=== PATIENT | male | born 1930 | race Asian ===

== ENCOUNTER 2017-01-15 12:50 | Emergency (ER) | payer MEDICARE, MEDICAID ==
--- NOTE | 2017-01-15 13:15 | RAD ---
Indication: Neurologic symptoms. Single frontal view of the chest performed at 1303 hours was reviewed. Comparison is made with previous exam dated May 11, 2016. No mediastinal shift is noted. Cardiomegaly is noted. Lung costa are clear. IMPRESSION: NO ACTIVE CARDIOPULMONARY DISEASE IS NOTED.
[2017-01-15 13:18] LABS: Hematocrit 47 % (42-52); Hemoglobin 15.8 g/dl (14.0-18.0); Mean Corpuscular HGB Conc 34 g/dl (31-36); Mean Corpuscular Hemoglobin 32 pg (27-31); Mean Corpuscular Volume 95 fL (80-94); Mean Platelet Volume 8 um3 (7.4-10.4); Red Blood Count 4.94 10^6/ul (4.0-5.4); Red Cell Distribution Width 13 % (10.5-15); White Blood Count 9.8 10^3/ul (3.5-10.8)
--- NOTE | 2017-01-15 13:24 | RAD ---
Indication: Code Vogel. Neurological changes. Comparison: May 11, 2016 Technique: Noncontrast CT vertex of skull through foramen magnum. Report: Moderately severe prominence of the cerebral sulci. Decreased density in the periventricular and subcortical white matter while non-specific is most likely due to chronic microangiopathy. Negative for chávez matter white matter obscuration, intra or extra-axial hemorrhage, or mass effect. Calcification of the basal ganglia and choroid plexus noted. Unremarkable orbital contents. Atherosclerotic calcification at the central intracranial arteries. No suspicious finding of the calvarium or skull base. Retained secretions and gas at the bilateral sphenoid sinuses and near complete opacification of the ethmoid sinuses. Retained secretions with fluid level and gas bubbles at the RIGHT maxillary sinus. Clear mastoid air spaces. Negative for scalp hematoma. IMPRESSION: 1. Negative for intracranial hemorrhage. 2. Negative for mass effect. 3. Atrophy and stigmata of chronic small vessel ischemic disease and large vessel atherosclerotic disease. 4. Paranasal sinus disease similar to the prior exam. Results discussed with Dr. Belcher 01/15/2017 1:21 PM EDT
[2017-01-15 13:34] LABS: Calcium 9.4 mg/dL (8.6-10.3); EGFR African American 90.9 (>60); EGFR Non-African American 70.7 (>60); Globulin 2.9 g/dL (2-4); HDL Cholesterol 43.5 mg/dL; Potassium 3.8 mmol/L (3.5-5.0); Total Bilirubin 0.7 mg/dL (0.2-1.0); Total Protein 6.9 g/dL (6.4-8.9)
[2017-01-15 13:36] LABS: Troponin I 0.02 ng/mL (<0.04)
[2017-01-15] MEDS ORDERED: Iodixanol* (CONTRAST) 320 MG/ML 100 ML SDV IV ONE (13:36)
[2017-01-15] MEDS ORDERED: Alteplase* 100 MG VIAL ONE (13:59)
[2017-01-15 14:02] LABS: Urine Bacteria Absent (Absent); Urine Bilirubin Negative (Negative); Urine Glucose 3+(>=500 mg/dL) (Negative); Urine Nitrite Negative (Negative)
--- NOTE | 2017-01-15 14:25 | RAD ---
HISTORY: Left-sided weakness COMPARISONS: Head CT dated January 15, 2017 TECHNIQUE: Multiple contiguous axial CT scans were obtained of the head and neck After the administration of nonionic intravenous contrast timed to the systemic arterial phase of contrast enhancement. Coronal and sagittal multiplanar reformations are submitted for review. Multiple 3-D maximum intensity projection reconstructions are also submitted for review. FINDINGS: CTA NECK: AORTIC ARCH: There is a normal three-vessel branching pattern of the aortic arch. There is no ostial or proximal stenosis of the cephalic great vessels. RIGHT VERTEBRAL ARTERY: The right vertebral artery is patent along its course, without stenosis. LEFT VERTEBRAL ARTERY: The left vertebral artery is patent along its course, without stenosis. DOMINANCE: The left vertebral artery is dominant. RIGHT COMMON CAROTID ARTERY: The right common carotid artery is patent. The right carotid bifurcation occurs at C5 RIGHT INTERNAL CAROTID ARTERY: There is no right internal carotid artery stenosis by NASCET criteria. RIGHT EXTERNAL CAROTID ARTERY: The right external carotid artery is unremarkable. LEFT COMMON CAROTID ARTERY: The left common carotid artery is patent. 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 This extends superiorly to the level of the ICA clinoid segment, where there is reconstitution of flow. LEFT EXTERNAL CAROTID ARTERY: The left external carotid artery is unremarkable. VENOUS CIRCULATION: The venous system is unremarkable. SALIVARY GLANDS: The parotid glands, submandibular glands, sublingual glands are normal. NASAL CAVITY/NASOPHARYNX: The nasal cavity and nasopharynx are normal. ORAL CAVITY/OROPHARYNX: The oral cavity and oropharynx are unremarkable. LARYNGEAL APPARATUS/HYPOPHARYNX: The laryngeal apparatus and hypopharynx are normal. UPPER AIRWAY/UPPER ESOPHAGUS: The visualized upper airway and esophagus are normal. LUNG APICES: The lung apices are clear. THYROID GLAND: The thyroid gland is normal. LYMPH NODES: There is no lymphadenopathy by size criteria. BONES AND SOFT TISSUES: Degenerative changes are noted of the spine. There is a 2 cm sebaceous cyst of the right posterior neck. CTA HEAD: INTRACRANIAL CIRCULATION: As noted above, there is occlusion of the left internal carotid artery with reconstitution at the ICA terminus. Flow is noted within the supraclinoid left internal carotid artery, anterior cerebral artery, and the proximal M1 segment of the left middle cerebral artery. The mid and distal M1 segments are occluded. There is also occlusion of the proximal M2 segments. There is partial reconstitution of the M3 segments of the superior division. The anterior communicating artery complex is clear. Bilateral posterior communicating arteries are identified. VENOUS CIRCULATION: The venous system is unremarkable. PERFUSION: There is associated hypoperfusion of the left MCA territory compared to the right HEMORRHAGE/INFARCT: There is loss of chávez-white differentiation along the insula suggestive of early nonhemorrhagic infarct MASSES/SHIFT: There is no mass or shift. EXTRA-AXIAL SPACES: There are no extra-axial fluid collections. SULCI AND VENTRICLES: There is diffuse and proportional enlargement of the sulci and ventricles. CEREBRUM: There are no focal parenchymal abnormalities. BRAINSTEM: As noted above, there is loss of graft pointed differentiation along the insula CEREBELLUM: There are no focal parenchymal abnormalities. PARANASAL SINUSES: There is opacification of the ethmoid air cells. There are-fluid levels within the right maxillary sinus and sphenoid sinus ORBITS: The orbits are unremarkable. BONES AND SOFT TISSUE: No bone or soft tissue abnormalities are noted. OTHER: There is no abnormal enhancement. IMPRESSION: 1. 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 2. THERE IS ALSO THROMBOSIS OF THE LEFT MIDDLE CEREBRAL ARTERY M1 SEGMENTS AND M2 SEGMENTS WITH ASSOCIATED HYPOPERFUSION OF THE LEFT MCA TERRITORY. 3. THERE IS LOSS OF CHÁVEZ-WHITE DIFFERENTIATION ALONG THE INSULA SUGGESTIVE OF EARLY NONHEMORRHAGIC INFARCT. 4. PRELIMINARY FINDINGS WERE DISCUSSED WITH DR. KEANE IN THE EMERGENCY DEPARTMENT AT APPROXIMATELY 2:16 PM ON JANUARY 15, 2017 CPT II Codes: 3100F
--- NOTE | 2017-01-15 15:14 | ED ---
Roge Fischer Rebecca, scribed for Nicho Belcher MD on 01/15/17 at 1314 . Neurological HPI - HPI Summary HPI Summary: Patient is an 86 y/o M BIBA who presents to ED with left sided gaze, R-sided weakness and nonverbal disposition. He was last seen normal at 1000 today while brushing his teeth, per EMS. EMS report he is typically up and walking. They note that his first language is Turkish. Is on Warfarin and lives at a assisted. Level 5 caveat due to AMS. - History of Current Complaint Stated Complaint: CODE RHOADES Hx Obtained From: EMS Hx From Patient Unobtainable Due To: Altered Mental Status Onset/Duration: Started hours ago - Last seennormal at 1000, Still Present Associated Signs and Symptoms: Positive: Visual Changes - L-sided gaze, Weakness - R-sided, AMS - Nonverbal - Additional Pertinent History Primary Care Physician: RASHEL - Allergy/Home Medications Allergies/Adverse Reactions: Allergies Allergy/AdvReac Type Severity Reaction Status Date / Time Doxycycline Allergy Difficulty Verified 05/11/16 16:35 Breathing Naproxen Allergy Difficulty Verified 05/11/16 16:35 Breathing Home Medications: Home Medications Acetaminophen [Acetaminophen Extra Stren] 500 mg PO Q8HR PRN 01/15/17 [History Confirmed 01/15/17] Albuterol/Ipratropium NEB.RIA* [Duoneb (Albuterol 2.5 MG/Ipratropium 0.5 MG)] 1 neb INH Q6H PRN 01/15/17 [History Confirmed 01/15/17] Allopurinol TAB* [Zyloprim 100 MG TAB*] 100 mg PO DAILY 01/15/17 [History Confirmed 01/15/17] Furosemide TAB* [Lasix TAB*] 40 mg PO QAM 01/15/17 [History Confirmed 01/15/17] Polyethylene Glycol-Propylene [Systane Ultra 0.4-0.3 %] 1 drop BOTH EYES QID PRN 01/15/17 [History Confirmed 01/15/17] Senna/Docusate (NF) [Sennokot-S] 2 tab PO DAILY 01/15/17 [History Confirmed ] PMH/Surg Hx/FS Hx/Imm Hx Endocrine/Hematology History: Reports: Hx Anticoagulant Therapy - coumadin, Hx Diabetes Denies: Hx Thyroid Disease Cardiovascular History: Reports: Hx Hypertension, Hx Myocardial Infarction Respiratory History: Reports: Hx Asthma, Hx Chronic Obstructive Pulmonary Disease (COPD) GI History: Denies: Hx Ulcer - Surgical History Surgery Procedure, Year, and Place: STENT DUE NTO HEART ATTACK 2010 - Immunization History Date of Tetanus Vaccine: none Date of Influenza Vaccine: 2013 Infectious Disease History: Denies: Hx Hepatitis, Hx Human Immunodeficiency Virus (HIV), Traveled Outside the [place] in Last 30 Days - Family History Known Family History: Positive: Hypertension, Diabetes - Social History Lives: At [facility] Alcohol Use: None Substance Use Type: Reports: None Hx Tobacco Use: No Smoking Status (MU): Former Smoker Review of Systems - ROS Summary Review of Systems Summary: Level 5 caveat due to AMS Positive: Other - Left gaze Neurological: Other - Nonverbal Positive: Weakness - R-sided weakness All Other Systems Reviewed And Are Negative: No Physical Exam - Summary Physical Exam Summary: VITAL SIGNS: Reviewed. GENERAL: ~Patient is an elderly male who is alert, but not responding. HEAD AND FACE: No signs of trauma. ~No ecchymosis, hematomas or skull depressions. No sinus tenderness. EYES: PERRLA, No injected conjunctiva, no nystagmus. No photophobia. He has a gaze to the L side. EARS: Ear canals and tympanic membranes are within normal limits. CHEST: Symmetric, no tenderness at palpation LUNGS: Clear to auscultation bilaterally. No wheezing or crackles. CVS: IRR, S1 and S2 present, no murmurs or gallops appreciated. EXTREMITIES: FROM in all major joints, no edema, no cyanosis or clubbing. NEURO: Alert, but not responding. Has R-sided weakness. SKIN: Dry and warm Triage Information Reviewed: Yes Vital Signs On Initial Exam: Initial Vitals Pulse Pulse Ox 74 97 01/15/17 13:17 01/15/17 13:17 Vital Signs Reviewed: Yes Completion Of Physical Exam Limited Due To: Level 5 Diagnostics - Vital Signs Vital Signs Temp Pulse Resp BP Pulse Ox 01/15/17 14:57 97.7 F 01/15/17 13:39 99 01/15/17 13:30 95.9 F 74 28 144/70 98 01/15/17 13:20 98.3 F 66 15 134/74 99 06/16/17 13:19 64 25 134/74 98 01/15/17 13:18 98.3 F 76 15 99 01/15/17 13:17 74 97 - Laboratory Lab Results: Lab Results 01/15/17 01/15/17 01/15/17 Range/Units 13:10 13:10 13:10 WBC 9.8 (3.5-10.8) 10^3/ul RBC 4.94 (4.0-5.4) 10^6/ul Hgb 15.8 (14.0-18.0) g/dl Hct 47 (42-52) % MCV 95 H (80-94) fL MCH 32 H (27-31) pg MCHC 34 (31-36) g/dl RDW 13 (10.5-15) % Plt Count 236 (150-450) 10^3/ul MPV 8 (7.4-10.4) um3 Neut % (Auto) 63.0 (38-83) % Lymph % (Auto) 20.5 L (25-47) % Reeves % (Auto) 9.5 H (1-9) % Eos % (Auto) 5.9 (0-6) % Baso % (Auto) 1.1 (0-2) % Absolute Neuts (auto) 6.1 (1.5-7.7) 10^3/ul Absolute Lymphs (auto) 2.0 (1.0-4.8) 10^3/ul Absolute Monos (auto) 0.9 H (0-0.8) 10^3/ul Absolute Eos (auto) 0.6 (0-0.6) 10^3/ul Absolute Basos (auto) 0.1 (0-0.2) 10^3/ul Absolute Nucleated RBC 0 10^3/ul Nucleated RBC % 0 INR (Anticoag Therapy) 0.88 L (0.89-1.11) APTT 30.8 (26.0-36.3) seconds Sodium 137 (133-145) mmol/L Potassium 3.8 (3.5-5.0) mmol/L Chloride 101 (101-111) mmol/L Carbon Dioxide 29 (22-32) mmol/L Anion Gap 7 (2-11) mmol/L BUN 18 (6-24) mg/dL Creatinine 1.00 (0.67-1.17) mg/dL Est GFR ( Amer) 90.9 (>60) Est GFR (Non-Af Amer) 70.7 (>60) BUN/Creatinine Ratio 18.0 (8-20) Glucose 168 H (70-100) mg/dL Lactic Acid (0.5-2.0) mmol/L Calcium 9.4 (8.6-10.3) mg/dL Total Bilirubin 0.70 (0.2-1.0) mg/dL AST 14 (13-39) U/L ALT 10 (7-52) U/L Alkaline Phosphatase 76 (34-104) U/L Troponin I 0.02 (<0.04) ng/mL Total Protein 6.9 (6.4-8.9) g/dL Albumin 4.0 (3.2-5.2) g/dL Globulin 2.9 (2-4) g/dL Albumin/Globulin Ratio 1.4 (1-3) Triglycerides 234 mg/dL Cholesterol 180 mg/dL LDL Cholesterol 90 mg/dL HDL Cholesterol 43.5 mg/dL Urine Color Urine Appearance Urine pH (5-9) Ur Specific Lewis (1.010-1.030) Urine Protein (Negative) Urine Ketones (Negative) Urine Blood (Negative) Urine Nitrate (Negative) Urine Bilirubin (Negative) Urine Urobilinogen (Negative) Ur Leukocyte Esterase (Negative) Urine WBC (Auto) (Absent) Urine RBC (Auto) (Absent) Urine Bacteria (Absent) Urine Glucose (Negative) Urine Ascorbic Acid (Negative) Blood Type Antibody Screen 01/15/17 01/15/17 01/15/17 Range/Units 13:10 13:10 13:35 WBC (3.5-10.8) 10^3/ul RBC (4.0-5.4) 10^6/ul Hgb (14.0-18.0) g/dl Hct (42-52) % MCV (80-94) fL MCH (27-31) pg MCHC (31-36) g/dl RDW (10.5-15) % Plt Count (150-450) 10^3/ul MPV (7.4-10.4) um3 Neut % (Auto) (38-83) % Lymph % (Auto) (25-47) % Reeves % (Auto) (1-9) % Eos % (Auto) (0-6) % Baso % (Auto) (0-2) % Absolute Neuts (auto) (1.5-7.7) 10^3/ul Absolute Lymphs (auto) (1.0-4.8) 10^3/ul Absolute Monos (auto) (0-0.8) 10^3/ul Absolute Eos (auto) (0-0.6) 10^3/ul Absolute Basos (auto) (0-0.2) 10^3/ul Absolute Nucleated RBC 10^3/ul Nucleated RBC % INR (Anticoag Therapy) (0.89-1.11) APTT (26.0-36.3) seconds Sodium (133-145) mmol/L Potassium (3.5-5.0) mmol/L Chloride (101-111) mmol/L Carbon Dioxide (22-32) mmol/L Anion Gap (2-11) mmol/L BUN (6-24) mg/dL Creatinine (0.67-1.17) mg/dL Est GFR ( Amer) (>60) Est GFR (Non-Af Amer) (>60) BUN/Creatinine Ratio (8-20) Glucose (70-100) mg/dL Lactic Acid 1.6 (0.5-2.0) mmol/L Calcium (8.6-10.3) mg/dL Total Bilirubin (0.2-1.0) mg/dL AST (13-39) U/L ALT (7-52) U/L Alkaline Phosphatase (34-104) U/L Troponin I (<0.04) ng/mL Total Protein (6.4-8.9) g/dL Albumin (3.2-5.2) g/dL Globulin (2-4) g/dL Albumin/Globulin Ratio (1-3) Triglycerides mg/dL Cholesterol mg/dL LDL Cholesterol mg/dL HDL Cholesterol mg/dL Urine Color Yellow Urine Appearance Clear Urine pH 6.0 (5-9) Ur Specific Lewis 1.020 (1.010-1.030) Urine Protein Negative (Negative) Urine Ketones Negative (Negative) Urine Blood 1+ H (Negative) Urine Nitrate Negative (Negative) Urine Bilirubin Negative (Negative) Urine Urobilinogen Negative (Negative) Ur Leukocyte Esterase Negative (Negative) Urine WBC (Auto) Absent (Absent) Urine RBC (Auto) 3+(>10/hpf) H (Absent) Urine Bacteria Absent (Absent) Urine Glucose 3+(>=500 mg/dl) H (Negative) Urine Ascorbic Acid * H (Negative) Blood Type B Positive Antibody Screen Negative Result Diagrams: 01/15/17 13:10 01/15/17 13:10 Lab Statement: Any lab studies that have been ordered have been reviewed, and results considered in the medical decision making process. - Radiology CXR Xray Interpretation: No Acute Changes - NO ACTIVE CARDIOPULMONARY DISEASE IS NOTED. Radiology Interpretation Completed By: Radiologist - CT Brain CT CT Interpretation: No Acute Changes - 1. Negative for intracranial hemorrhage. 2. Negative for mass effect. 3. Atrophy and stigmata of chronic small vessel ischemic disease and large vessel atherosclerotic disease. 4. Paranasal sinus disease similar to the prior exam. Results discussed with Dr. Belcher 01/15/2017 1 :[address] Interpretation Completed By: Radiologist Head/neck CTA CT Interpretation: Positive (See Comments) - 1. 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 2. THERE IS ALSO THROMBOSIS OF THE LEFT MIDDLE CEREBRAL ARTERY M1 SEGMENTS AND M2 SEGMENTS WITH ASSOCIATED HYPOPERFUSION OF THE LEFT MCA TERRITORY. 3. THERE IS LOSS OF RHOADES-WHITE DIFFERENTIATION ALONG THE INSULA SUGGESTIVE OF EARLY NONHEMORRHAGIC INFARCT. 4. PRELIMINARY FINDINGS WERE DISCUSSED WITH DR. BELCHER IN THE EMERGENCY DEPARTMENT AT APPROXIMATELY 2:16 PM ON JANUARY 15, 2017 CT Interpretation Completed By: Radiologist - EKG 1309 Cardiac Rate: NL - 77 bpm EKG Rhythm: Atrial Fibrillation NIH Scale - NIH Scale Level of Consciousness: Alert/Keenly Responsive - Is nonverbal and he does not respond to any stimuli Ask Patient the Month and His/Her Age: Neither Correct/Aphasic Ask Pt to Open/Close Eyes and Electrical Instrument Technician/Release Non-Paretic Hand: Neither Correctly Best Gaze (Only Horizontal Eye Movement): Forced Deviation Visual Field Testing: Bilateral Hemianopia Facial Paresis-Pt to Smile & Close Eyes or Grimace Symmetry: Partial Paralysis Motor Function - Right Arm: No Effort Against Lewis Motor Function - Left Arm: No Drift-Holds 10 Seconds Motor Function - Right Leg: No Effort Against Lewis Motor Function - Left Leg: No Drift-Holds 10 Seconds Limb Ataxia-Must be out of Proportion to Weakness Present: Present in One Limb Sensory (Use Pinprick to Test Arms/Legs/Trunk/Face): Severe to Total Loss Best Language (Describe Picture, Name Items): Severe Aphasia Dysarthria (Read Several Words): Unintelligible or Mute Extinction and Inattention: Profound Hudson-Inattention Total Score: 26 Course/Dx - Course Assessment/Plan: Patient is an 86 y/o M BIBA who presents to ED with left sided gaze, R-sided weakness and nonverbal disposition. He was last seen normal at 8 AM today while he was having breakfast, per [place] assistant business manager. EMS report he is typically up and walking. They note that his first language is Turkish. Is on Warfarin and lives at a assisted. Initially, we saw the patient the patient has R-sided weakness, therefore patient was directly taken to CT and a Tia rhoades was called. We placed the patient on a monitor, IV access was obtained , IV fluids were started. NIH score is equal to 26. Immediately, Dr. Walton was called, who came as assessed the patient. Head CT shows no acute pathology. CXR shows no acute cardiopulmonary disease. Blood work WNL except for INR of 0.88, glucose 168, UA with 3+ blood. Dr. Walton requested to do a CTA which revealed 1. 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 2. THERE IS ALSO THROMBOSIS OF THE LEFT MIDDLE CEREBRAL ARTERY M1 SEGMENTS AND M2 SEGMENTS WITH ASSOCIATED HYPOPERFUSION OF THE LEFT MCA TERRITORY. 3. THERE IS LOSS OF RHOADES-WHITE DIFFERENTIATION ALONG THE INSULA SUGGESTIVE OF EARLY NONHEMORRHAGIC INFARCT. 4. PRELIMINARY FINDINGS WERE DISCUSSED WITH DR. BELCHER IN THE EMERGENCY DEPARTMENT AT APPROXIMATELY 2:16 PM ON JANUARY 15, 2017. After multiple phone calls to the assisted and to the daughter, we understand the patient was last well seen at 0800, however the patient was verbal and moving on his own at 1115. Dr. Walton disclosed the case with the daughter and Dr. Parihk from [place] and they request the patient was transferred to [facility] for a possible retrieval of the clot. At this point, the patient is stable, however critical, sx are the same. The patient will be transferred via helicopter. - Differential Dx Differential Diagnoses Neuro: Positive: Cerebrovascular Accident, Seizure Disorder, Transient Ischemic Attack - Diagnoses Provider Diagnoses: acute ischemic CVA During the Visit The Following Alert/Code Occurred: Code Vogel - Called at 1245 ( 10 minutes ORE SMELTER) - Physician Notifications Discussed Care Of Patient With: Nicho Christianson Time Discussed With Above Provider: 13:21 Instructed by Provider To: Other - Reports brain CT shows no acute intracranial pathology. Dr. Walton evaluated pt in the ED and discussed the case with [facility]. Discussed care of patient with Dr. Ulrich at 1416, radiologist , who gave the preliminrary head/neck CTA results of a L MC clot. - Critical Care Time Critical Care Time: 30-74 min Discharge - Discharge Plan Condition: Critical Disposition: TRANS HIGHER LVL OF CARE FAC Referrals: Hector Nunez MD [Primary Care Provider] - The documentation as recorded by the Roge ruvalcaba Rebecca accurately reflects the service I personally performed and the decisions made by Ye viera Walter, MD.
[2017-01-15 15:41] VITALS: BP 131/96
--- NOTE | 2017-01-15 18:06 | CONS ---
CONSULTATION REPORT: DATE OF CONSULT: 01/15/17 - EMERGENCY DEPT PATIENT OF: Dr. Belcher. HISTORY OF PRESENT ILLNESS: This is an 86-year-old man who presented today with a dense stroke. I saw him shortly after he came in and saw him over the next 2 hours. The initial history was that he was last known well was at 10, but once we had reached the [facility], they said at 11:19 when he was going to the bathroom, he was still able to speak in his limited way, but he had weakness in his legs that was commented on and was thought to be unusual and more than his usual weakness. He is able to walk independently. Right prior to transfer, we were able to reach the daughter after multiple attempts and she notes that she was with him from 8 to 10 and he appeared normal at 10 o'clock but we did not have that information until shortly before transfer to [facility]. In any event, he presented with left eye deviation and dense right hemiparesis with inability to speak and was not able to give us history. 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 MEDICATIONS: 1. Fluticasone. 2. Furosemide 20 mg q.a.m. 3. Loratadine 10 mg daily. 4. Magnesium oxide 250 daily. 5. Metformin 500 b.i.d. 6. Advair Diskus 250/50. 7. Warfarin. He apparently is not on warfarin now, but we did not know that when he was being initially evaluated. ALLERGIES: Include DOXYCYCLINE, NAPROXEN. FAMILY HISTORY: Reviewed and noncontributory. SOCIAL HISTORY: He used to drink alcohol, but not for many years. No drug use and no smoking recently. He quit 25 years ago. REVIEW OF SYSTEMS: He was not able to give any history. PHYSICAL EXAM: Temperature 97.9, pulse 71, respirations 26, blood pressure 131/ 96. I evaluated him throughout this period and exam is consistent including looking at him with his daughter and shortly before transfer. His eyes were open, but he had fixed eye deviation to his left. He had some movements on his right side, they were purposeful when the Hughes was placed. He attempted to remove it with his left hand, but he did not follow any directions. He had no speech and with the daughter speaking Indian. He had no speech and he did not follow any commands. He could not name things. It was hard to assess that he had visual field cuts. Cranial nerves II through XII were otherwise intact other than he had a right facial weakness. Red reflexes present bilaterally. He had 0/5 strength in the right arm. He moved his right leg against gravity, but it was limited whereas he seemed to have full 5/5 strength on the left. His right toe was upgoing. He was not able to cooperative with things such as [id number] and he seemed to respond to noxious stimuli on both sides, more on the left than the right, and roughly 2 o'clock, I did a full NIH stroke score which at that point was 24. Chest: Clear. Cardiovascular: Irregular rate. Abdomen was soft with positive bowel sounds. He had no edema. DIAGNOSTIC STUDIES/LAB DATA: His CT scan was done which showed atrophy and a small vessel disease with some basal ganglia calcifications that were unchanged from prior study. Labs included white count 9.8, hematocrit 47, platelets 236. INR was only 0.88 and then we had found out afterwards he was not on anticoagulation. His creatinine was 1. He had a glucose of 166. LDL was 90. Rest of his CMP was normal. UA had 1 + blood, 3+ red, 3+ glucose. 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 I had been on the phone with [facility] shortly after he had come in regarding another patient I presented them to him at that point, and then once we had the CT scan back, I put an immediate call in to them. While I was awaiting for them, we were finally able to reach the daughter and I spoke to the daughter and his daughter and son. I discussed what had happened to their father in detail and then was discussing the options of treatment with them, then [facility] called back and we had further discussion with [facility] on the phone. Since he is likely to have a severe life-altering stroke, they want him to be a candidate for clot retrieval and realize that clot retrieval may or may not work and they would have to evaluate whether they would do it, but they think that they might given the overall situation with the last known well now documented at 10 as opposed to 8 o'clock and with only a partial deficit at 11:20 as listed by the nurses. I had discussed with the family that with his last known well at 8 o'clock as per the fdc, he was not a TPA candidate. We had information shortly before transfer from the daughter as described above. Thank you for sharing his case. [id number]/[facility] #: [id number] VALERIE
== END 2017-01-15 15:51 | disposition short-term general hospital (02) ==
LOC: ED 12:50
DX: I63.9 Cerebral infarction, unspecified (principal)
CPT/HCPCS: 36415; 70450; 70496; 70498; 71010; 80053; 80061; 81003; 81015; 83605; 84484; 85025; 85610; 85730; 86850; 86900; 86901; 93005; 99285; J2997; Q9967

== ENCOUNTER 2017-01-29 23:08 | Inpatient (IN) | payer MEDICARE, MEDICAID ==
[2017-01-30] MEDS: NS 0.9% 1000 ML* 1,000 ML IV SCH ×2 (02:52→07:31)
[2017-01-30 02:59] LABS: Hematocrit 45 % (42-52); Hemoglobin 15.6 g/dl (14.0-18.0); Mean Corpuscular HGB Conc 35 g/dl (31-36); Mean Corpuscular Hemoglobin 32 pg (27-31); Mean Corpuscular Volume 93 fL (80-94); Mean Platelet Volume 7 um3 (7.4-10.4); Red Blood Count 4.84 10^6/ul (4.0-5.4); Red Cell Distribution Width 13 % (10.5-15); White Blood Count 14.6 10^3/ul (3.5-10.8)
[2017-01-30 03:08] LABS: BUN/Creatinine Ratio 14.1 (8-20); Calcium 9.3 mg/dL (8.6-10.3); EGFR Non-African American 104.9 (>60); Potassium 2.8 mmol/L (3.5-5.0)
[2017-01-30] MEDS ORDERED: Ipratropium 0.5MG/2.5ML NEB* 0.5 MG/2.5 ML NEB.SOLN INH PRN (04:22)
[2017-01-30] MEDS ORDERED: Dextrose 50% Syringe 50 ML* 25 GM/50 ML SYRINGE IV PUSH PRN (05:32)
--- NOTE | 2017-01-30 06:17 | ED ---
Gregorio Fischer Thomas, scribed for Marcellus Gonzales MD on 01/30/17 at 0307 . Complex/Multi-Sys Presentation - HPI Summary HPI Summary: LEVEL 5 CAVEAT: HPI is limited due to pt's s/p stroke The pt is an 86 y/o M BIB EMS after he pulled out his nasogastric tube. He is a new patient at [facility] s/p stroke 2 weeks ago. G tube was inserted three days ago. PMHx: DM, asthma, CHF. - History Of Current Complaint Chief Complaint: EDGeneral Time Seen by Provider: 01/30/17 00:26 Hx Obtained From: Family/Social Media Campaign Manager, EMS Hx From Patient Unobtainable Due To: Other - s/p stroke 2 weeks ago Onset/Duration: Sudden Onset, Still Present Timing: Constant - Allergies/Home Medications Allergies/Adverse Reactions: Allergies Allergy/AdvReac Type Severity Reaction Status Date / Time Doxycycline Allergy Difficulty Verified 05/11/16 16:35 Breathing Naproxen Allergy Difficulty Verified 05/11/16 16:35 Breathing Home Medications: Home Medications Aspirin 81 mg PEG TUBE DAILY 01/30/17 [History Confirmed 01/30/17] Atorvastatin* [Lipitor*] 40 mg PEG TUBE DAILY 01/30/17 [History Confirmed ] Insulin Regular (Human) [Humulin R U-500 (Concentrated)] 0 - 20 unit SUBCUT Q6HR 01/30/17 [History Confirmed 01/30/17] Ipratropium 0.5MG/2.5ML NEB* [Atrovent 0.5 MG NEB.RIA*] 0.5 mg INH Q6H PRN 01/30 [History Confirmed 01/30/17] Nystatin SUSPENSION ORAL SYR* 50,000 units PO QID 01/30/17 [History Confirmed ] PMH/Surg Hx/FS Hx/Imm Hx Previously Healthy: No - LEVEL 5 CAVEAT: PMH is limited due to pt's s/p stroke Endocrine/Hematology History: Reports: Hx Anticoagulant Therapy - coumadin, Hx Diabetes Denies: Hx Thyroid Disease Cardiovascular History: Reports: Hx Hypertension, Hx Myocardial Infarction Respiratory History: Reports: Hx Asthma, Hx Chronic Obstructive Pulmonary Disease (COPD) GI History: Denies: Hx Ulcer History: Denies: Hx Renal Disease - Surgical History Surgery Procedure, Year, and Place: STENT DUE NTO HEART ATTACK 2010 - Immunization History Date of Tetanus Vaccine: none Date of Influenza Vaccine: 2013 Infectious Disease History: No Infectious Disease History: Denies: Hx Hepatitis, Hx Human Immunodeficiency Virus (HIV), Traveled Outside the [place] in Last 30 Days - Family History Known Family History: Positive: Hypertension, Diabetes - Social History Alcohol Use: None Substance Use Type: Reports: None Hx Tobacco Use: No Smoking Status (MU): Former Smoker Review of Systems - ROS Summary Review of Systems Summary: LEVEL 5 CAVEAT: ROS is limited due to pt's s/p stroke Constitutional: Negative Negative: Fever Eyes: Negative ENT: Negative Cardiovascular: Negative Respiratory: Negative Gastrointestinal: Other - s/p self-removal of G tube Genitourinary: Negative Musculoskeletal: Negative Skin: Negative Neurological: Negative Psychological: Normal All Other Systems Reviewed And Are Negative: Yes Physical Exam Triage Information Reviewed: Yes Vital Signs On Initial Exam: Initial Vitals Temp Pulse Resp BP Pulse Ox 99 F 60 16 120/66 95 01/29/17 23:55 01/29/17 23:55 01/29/17 23:55 01/29/17 23:55 01/29/17 23:55 Vital Signs Reviewed: Yes Appearance: Positive: Ill-Appearing - chronically, Thin Skin: Positive: Warm, Dry Eyes: Positive: KAIA ENT: Positive: Hearing grossly normal Neck: Positive: Supple Respiratory/Lung Sounds: Positive: Breath Sounds Present Cardiovascular: Positive: RRR Abdomen Description: Positive: Soft, Other: - mid abd fresh appearing site for g tube Diagnostics - Vital Signs Vital Signs Temp Pulse Resp BP Pulse Ox 01/29/17 23:55 99 F 60 16 120/66 95 - Laboratory Lab Results: Lab Results 01/30/17 01/30/17 Range/Units 02:43 02:43 WBC 14.6 H (3.5-10.8) 10^3/ul RBC 4.84 (4.0-5.4) 10^6/ul Hgb 15.6 (14.0-18.0) g/dl Hct 45 (42-52) % MCV 93 (80-94) fL MCH 32 H (27-31) pg MCHC 35 (31-36) g/dl RDW 13 (10.5-15) % Plt Count 287 (150-450) 10^3/ul MPV 7 L (7.4-10.4) um3 Neut % (Auto) 76.7 (38-83) % Lymph % (Auto) 8.8 L (25-47) % [place] % (Auto) 13.3 H (1-9) % Eos % (Auto) 1.0 (0-6) % Baso % (Auto) 0.2 (0-2) % Absolute Neuts (auto) 11.2 H (1.5-7.7) 10^3/ul Absolute Lymphs (auto) 1.3 (1.0-4.8) 10^3/ul Absolute Monos (auto) 1.9 H (0-0.8) 10^3/ul Absolute Eos (auto) 0.1 (0-0.6) 10^3/ul Absolute Basos (auto) 0 (0-0.2) 10^3/ul Absolute Nucleated RBC 0.01 10^3/ul Nucleated RBC % 0 Sodium 136 (133-145) mmol/L Potassium 2.8 L (3.5-5.0) mmol/L Chloride 101 (101-111) mmol/L Carbon Dioxide 29 (22-32) mmol/L Anion Gap 6 (2-11) mmol/L BUN 10 (6-24) mg/dL Creatinine 0.71 (0.67-1.17) mg/dL Est GFR ( Amer) 135.0 (>60) Est GFR (Non-Af Amer) 104.9 (>60) BUN/Creatinine Ratio 14.1 (8-20) Glucose 180 H (70-100) mg/dL Calcium 9.3 (8.6-10.3) mg/dL Result Diagrams: 01/30/17 02:43 01/30/17 02:43 Lab Statement: Any lab studies that have been ordered have been reviewed, and results considered in the medical decision making process. Re-Evaluation - Re-Evaluation First Eval Re-Evaluation Time: 02:30 - attempted to replace feeding tube without sucess, seen in ed by dr mcgrath Change: Unchanged Second Eval Re-Evaluation Time: 06:48 Complex Multi-Symp Course/Dx - Diagnoses Provider Diagnoses: Feeding tube dysfunction - Physician Notifications Discussed Care Of Patient With: Marcellus Mcgrath Time Discussed With Above Provider: 02:30 Instructed by Provider To: Admit As Observation - Discussed case Discharge - Discharge Plan Condition: Fair Disposition: ADMITTED TO [facility] The documentation as recorded by the Gregorio [email or web address] Thomas accurately reflects the service I personally performed and the decisions made by me, Marcellus Gonzales MD.
[2017-01-30] MEDS: Heparin VIAL(*) 5000 UNITS/ML VIAL (FIVE THOUSAND) SUBCUT SCH ×3 (07:46→22:47)
[2017-01-30] MEDS: Insulin LISPRO* 1 UNITS UNIT SUBCUT SCH ×3 (07:49→18:50)
--- NOTE | 2017-01-30 08:05 | RAD ---
Edited for charges. HISTORY: Tube check COMPARISONS: None VIEWS: Frontal supine view of the abdomen performed after demonstration of water -soluble contrast through the gastrostomy tube. FINDINGS: A gastrostomy tube is noted. Contrast is noted within the lumen of the stomach. Additionally, there is a fine contrast which appears to be within gauze overlying the patient, though the position is indeterminate. Degenerative changes are noted of the spine IMPRESSION: 1. A GASTROSTOMY TUBE IS NOTED. 2. THERE IS ORAL CONTRAST NOTED WITHIN THE LUMEN OF THE STOMACH. 3. ADDITIONALLY, THERE IS ILL-DEFINED CONTRAST WHICH MAY BE IN GAUZE OVERLYING THE PATIENT, THOUGH THE LOCATION OF THE CONTRAST IS INDETERMINATE ON THE SUBMITTED IMAGES. VALERIE
[2017-01-30] MEDS: Aspirin Low Dose CHEW TAB* 81 MG PEG TUBE SCH (09:18)
[2017-01-30] MEDS: Atorvastatin* 40 MG TAB PO SCH (09:19)
[2017-01-30] MEDS: Nystatin SUSPENSION* 100000 UNITS/ML 5 ML UDC PO SCH ×5 (09:19→21:00)
[2017-01-30] MEDS: NS 0.9% w/ 20 Meq KCL 1000 ML* 1,000 ML IV SCH ×2 (09:26→22:58)
[2017-01-30] MEDS: KCL 20 MEQ/100 ML IVPREMIX* 20 MEQ/100 ML BAG IV SCH ×3 (09:47→15:09)
--- NOTE | 2017-01-30 11:23 | PN ---
Progress Note - Progress Note Date of Service: 01/30/17 SOAP: Subjective: Appears comfortable Non-verbal Awake Objective: Temp Pulse Resp BP Pulse Ox 97.6 F 72 19 118/61 97 01/30/17 11:13 01/30/17 11:13 01/30/17 11:13 01/30/17 11:13 01/30/17 11:13 PEX: Abd is soft and non-distended. Bowel sounds are present G-Tube site without redness or drainage No generalized pain, guarding, rigidity or peritoneal signs Assessment: Inadvertent removal of recently (2-3 days)placed PEG tube No signs of sepsis or peritonitis Plan: Continue NPO and IV antibiotics If develops abdominal pain or signs of sepsis will require OR.
[2017-01-30] MEDS: ZOSYN 3.375 GM Q8H per EXTENDED INFUSION IVPB SCH ×4 (11:43→12:00)
[2017-01-30] MEDS: ZOSYN 3.375 GM IVPB SCH ×4 (11:47→18:06)
--- NOTE | 2017-01-30 17:24 | CONS ---
CC: Dr. Hector Nunez CONSULTATION REPORT: DATE OF CONSULT: 01/30/17 HISTORY: The patient is an 86-year-old male who recently arrived at [facility] after a stay at [facility] for a stroke and placement of a PEG tube. The correction noted that the PEG tube had been inadvertently removed and he was sent to the emergency room. I was called by the emergency room physician to assist in replacement of the PEG tube. Upon inspection of the site, the PEG tube insertion site appears to be a relatively fresh incision , and upon questioning the family, it seems that the tube had only been in place for about 2 days. Therefore, this represents an inadvertent early removal of the tube and there is no expectation that there has been a good tract formed and it is not likely that the stomach has become adherent to the abdominal wall. Therefore, a blind replacement of the tube is not advisable. The abdomen at present is nondistended, and other than tenderness, swelling, and induration around the site, his abdomen is not tender. At this stage, it is not recommended that percutaneous blind placement of the tube be attempted and there is concern that he could have intraperitoneal leakage from the gastrotomy site. As this is a relatively rare occurrence, there is not a large amount of literature on this subject, but I would say given this very early removal, the most prudent course would be nasogastric drainage, intravenous antibiotics, and observation in the hospital. The stomach wall should seal itself within 48 hours and assuming he shows no signs of peritonitis, a PEG tube could probably be placed again in another week. If he did start to develop signs of peritonitis, then laparoscopy would be warranted to washout the peritoneum and suture the hole in the stomach. I did discuss the case with Dr. Gonzales and Dr. Mcneal, and they will be arranging admission. We will be happy to see him again should the need arise. [id number]/[facility] #: [id number] [facility]EN'S HOSPITALMargot
--- NOTE | 2017-01-31 00:22 | HP ---
HISTORY AND PHYSICAL: DATE OF ADMISSION: 01/30/17 PRIMARY CARE PHYSICIAN: Dr. Hector Nunez. CHIEF COMPLAINT: G-tube dislodgement. HISTORY OF PRESENT ILLNESS: Please note, the patient only speaks Cantonese, but also according to his family, does not understand and does not respond appropriately at this time. The patient apparently had a stroke, was sent over to [place] where he was cared for and just went to [facility] the other day. Within the first day, he dislodged his G-tube and was sent over to [facility] for further evaluation. Patient was seen by Surgery and said because it was only for 2 days, the track had not been completed, and therefore the patient will need to be admitted for antibiotic therapy until he is stable for reinsertion of the G- tube. PAST MEDICAL HISTORY: The patient has a past medical history significant for CVA in December 2016, type 2 diabetes, AL in 2009, COPD, cardiomyopathy with an EF of 25% in 2009, atrial fibrillation. CURRENT MEDICATIONS: 1. Lipitor 40 mg via PEG tube daily. 2. Nystatin suspension 50,000 units p.o. 4 times a day. 3. Atrovent nebulizer q. 6 hours as needed. 4. Insulin regular as needed. 5. Aspirin 81 mg via PEG tube. ALLERGIES: He has an allergy/adverse reaction to DOXYCYCLINE, NAPROXEN. FAMILY HISTORY: Noncontributory. SOCIAL HISTORY: Quit tobacco about 26 years ago. No alcohol, no recreational drug use. He lives at [facility] now. His daughter is his healthcare proxy. Her name is Mary Sarah, her number is [phone]. REVIEW OF SYSTEMS: Unable to obtain from patient due to stroke and inability to communicate. PHYSICAL EXAMINATION GENERAL: This is a pleasant gentleman, lying in bed, sleepy, but not in acute distress. VITAL SIGNS: Temperature 99 degrees, heart rate 60 beats per minute, respiratory rate 16 breaths per minute, pulse ox 95%, blood pressure 120/66. HEENT: Normocephalic, atraumatic. Pupils equal, round, and reactive to light. He has got dry mucous membranes. NECK: Supple. No JVD, bruits, palpable thyroid or lymphadenopathy. CHEST: Clear to auscultation and percussion bilaterally. CARDIOVASCULAR: S1, S2 appreciated. ABDOMEN: Positive bowel sounds in all 4 quadrants, soft, nontender, nondistended. EXTREMITIES: No cyanosis or clubbing, +2 pulses bilaterally. NEUROLOGIC: He is arousable but cannot tell if he is oriented. SKIN: No distinct rashes or abnormalities. DIAGNOSTIC STUDIES/LAB DATA: White count 14.6, hemoglobin 15.6, hematocrit 45 , platelets are 287. Sodium is 136, potassium 2.8, chloride 101, CO2 29, BUN 10 , creatinine is 0.71. Catheter patency x-ray, a gastrostomy tube was noted. There is oral contrast defining the lumen of stomach. Additionally, there is ill-defined contrast maybe in overlying the , the location of the contrast intermittent in the submitted images. ASSESSMENT AND PLAN: 1. Dislodged G-tube. The cap will be replaced at this time. Placed on Zosyn 3.375 mg IV via extended infusion. Surgical consult. Normal saline with 20 of K at 100 cc an hour. 2. Hyperlipidemia. Continue atorvastatin. 3. Diabetes mellitus. Continue with sliding scale insulin. 4. Fluids, Electrolytes, Nutrition. We will get swallowing study before we put the patient on . Fluids as noted. 5. The patient is a do not resuscitate. TIME SPENT: Over 75 minutes were spent on this H and P; more than 40 minutes of which were spent in direct face- to-face contact with the patient in evaluation, physical exam, counseling, and coordination of care. [id number]/[facility] #: [id number] MTDD
[2017-01-31] MEDS: Insulin LISPRO* 1 UNITS UNIT SUBCUT SCH ×4 (00:37→18:14)
[2017-01-31] MEDS: ZOSYN 3.375 GM IVPB SCH ×8 (00:49→17:47)
[2017-01-31] MEDS: Nystatin CREAM* 15 GM TUBE TOPICAL SCH ×3 (00:50→20:06)
[2017-01-31] MEDS: Heparin VIAL(*) 5000 UNITS/ML VIAL (FIVE THOUSAND) SUBCUT SCH ×3 (06:05→22:16)
[2017-01-31] MEDS: Aspirin Low Dose CHEW TAB* 81 MG PEG TUBE SCH (08:41)
[2017-01-31] MEDS: Atorvastatin* 40 MG TAB PO SCH (08:41)
[2017-01-31] MEDS: Nystatin SUSPENSION* 100000 UNITS/ML 5 ML UDC PO SCH (08:42)
[2017-01-31 09:14] LABS: Hematocrit 41 % (42-52); Hemoglobin 14.1 g/dl (14.0-18.0); Mean Corpuscular HGB Conc 34 g/dl (31-36); Mean Corpuscular Hemoglobin 32 pg (27-31); Mean Corpuscular Volume 95 fL (80-94); Mean Platelet Volume 8 um3 (7.4-10.4); Red Blood Count 4.36 10^6/ul (4.0-5.4); Red Cell Distribution Width 13 % (10.5-15); White Blood Count 8.1 10^3/ul (3.5-10.8)
[2017-01-31] MEDS: D5W 1/2 NS KCl 20 Meq 1000 ML* 1,000 ML IV SCH (10:23)
--- NOTE | 2017-01-31 10:28 | PN ---
Subjective Date of Service: 01/31/17 Interval History: Pt is unable to speak. He does not gesture that he is in pain. Objective Active Medications: Aspirin (Aspirin Supp*) [address] DAILY [facility] Dextrose (D50w Syringe 50 Ml*) 12.5 gm IV PUSH .FOR FS < 60 - SS PRN PRN Reason: FS < 60 Heparin Sodium (Porcine) (Heparin Vial(*)) 5,000 units SUBCUT Q8HR [facility] Last Admin: 01/31/17 06:05 Dose: 5,000 units Piperacillin Sod/Tazobactam (Sod 3.375 gm/ Sodium Chloride) 100 mls @ 200 mls/ hr IVPB Q6H [facility] Last Admin: 01/31/17 06:05 Dose: 200 mls/hr Potassium Chloride/Dextrose (D5w 1/2 Ns Kcl 20 Meq 1000 Ml*) 1,000 mls @ 75 mls /hr IV PER RATE [facility] Insulin Human Lispro (Humalog*) 0 units SUBCUT Q6HR JUAN DANIEL PRN Reason: Protocol Last Admin: 01/31/17 06:00 Dose: Not Given Ipratropium Barnard (Atrovent 0.5 Mg Neb.Gemma*) 0.5 mg INH Q6H PRN PRN Reason: SOB/WHEEZING Nystatin (Nystatin Cream*) 1 applic TOPICAL BID [facility] Last Admin: 01/31/17 09:47 Dose: 1 applic Vital Signs 01/30/17 01/30/17 01/30/17 11:13 11:15 14:53 Temperature 97.6 F 97.8 F 99.0 F Pulse Rate 72 70 62 Respiratory 19 18 20 Rate Blood Pressure 118/61 120/68 112/59 (mmHg) O2 Sat by Pulse 97 98 98 Oximetry 01/30/17 01/30/17 01/30/17 19:45 21:20 23:42 Temperature 97.3 F 98.3 F Pulse Rate 70 65 Respiratory 19 18 18 Rate Blood Pressure 109/62 118/62 (mmHg) O2 Sat by Pulse 96 99 Oximetry 01/31/17 01/31/17 03:18 08:20 Temperature 98.7 F 99.0 F Pulse Rate 97 58 Respiratory 20 20 Rate Blood Pressure 119/61 109/64 (mmHg) O2 Sat by Pulse 97 99 Oximetry Oxygen Devices in Use Now: None Appearance: Elderly male sitting up in recliner chair, NAD Eyes: No Scleral Icterus Ears/Nose/Mouth/Throat: Mucous Membranes Moist Respiratory: Symmetrical Chest Expansion and Respiratory Effort, Clear to Auscultation Cardiovascular: NL Sounds; No Murmurs; No JVD, RRR, No Edema Abdominal: NL Sounds; No Tenderness; No Distention Extremities: No Clubbing, Cyanosis Skin: No Rash or Ulcers, No Nodules or Sclerosis Neurological: - - alert Result Diagrams: 01/31/17 08:53 01/30/17 02:43 Additional Lab and Data: Lab Results 01/30/17 01/30/17 Range/Units 02:43 02:43 WBC 14.6 H (3.5-10.8) 10^3/ul RBC 4.84 (4.0-5.4) 10^6/ul Hgb 15.6 (14.0-18.0) g/dl Hct 45 (42-52) % MCV 93 (80-94) fL MCH 32 H (27-31) pg MCHC 35 (31-36) g/dl RDW 13 (10.5-15) % Plt Count 287 (150-450) 10^3/ul MPV 7 L (7.4-10.4) um3 Neut % (Auto) 76.7 (38-83) % Lymph % (Auto) 8.8 L (25-47) % [place] % (Auto) 13.3 H (1-9) % Eos % (Auto) 1.0 (0-6) % Baso % (Auto) 0.2 (0-2) % Absolute Neuts (auto) 11.2 H (1.5-7.7) 10^3/ul Absolute Lymphs (auto) 1.3 (1.0-4.8) 10^3/ul Absolute Monos (auto) 1.9 H (0-0.8) 10^3/ul Absolute Eos (auto) 0.1 (0-0.6) 10^3/ul Absolute Basos (auto) 0 (0-0.2) 10^3/ul Absolute Nucleated RBC 0.01 10^3/ul Nucleated RBC % 0 Sodium 136 (133-145) mmol/L Potassium 2.8 L (3.5-5.0) mmol/L Chloride 101 (101-111) mmol/L Carbon Dioxide 29 (22-32) mmol/L Anion Gap 6 (2-11) mmol/L BUN 10 (6-24) mg/dL Creatinine 0.71 (0.67-1.17) mg/dL Est GFR ( Amer) 135.0 (>60) Est GFR (Non-Af Amer) 104.9 (>60) BUN/Creatinine Ratio 14.1 (8-20) Glucose 180 H (70-100) mg/dL Calcium 9.3 (8.6-10.3) mg/dL Microbiology and Other Data: Microbiology 01/30/17 06:40 Nasal Screen MRSA (PCR)(LEONCIO) - Final Nasal Mrsa Negative Assess/Plan/Problems-Billing Mr Sarah is an 86 yo M who has a h/o recent large (?)L MCA CVA in the setting of afib and not being on anticoagulation who was discharged to [facility] last week and was brought to the ER on 01/30/17 after he inadvertently pulled out his G tube. - Patient Problems (1) Peritonitis Current Visit: Yes Status: Acute Code(s): K65.9 - PERITONITIS, UNSPECIFIED SNOMED Code(s): 22540786 Comment: The patient's G tube was placed just 2 days before it was pulled out. As no definitive tract could have been made in that period of time will treat the patient as if he has peritonitis. Continue zosyn. WBC count has normalized. He does not appear to have any pain on exam, his abdomen is not rigid. Continue NPO status for now but possible trial of eating tomorrow but will need ok from surgery and swallow eval as the patient had previously been aspirating. (2) CVA (cerebral vascular accident) Current Visit: Yes Status: Acute Code(s): I63.9 - CEREBRAL INFARCTION, UNSPECIFIED SNOMED Code(s): 392407634 Comment: Continue PT/OT/speech therapy while in the hospital. He just went to [facility] for rehab last week. Change ASA to rectal for now. (3) Afib Current Visit: Yes Status: Acute Code(s): I48.91 - UNSPECIFIED ATRIAL FIBRILLATION SNOMED Code(s): 65835150 Comment: Rate controlled. ASA rectally. (4) Type II diabetes mellitus Current Visit: Yes Status: Acute Comment: Sugars are under good control. Continue lispro sliding scale. (5) DVT prophylaxis Current Visit: Yes Status: Acute Code(s): PMX2721 - SNOMED Code(s): 044031509 Comment: SQ heparin (6) DNR (do not resuscitate) Current Visit: Yes Status: Chronic Comment: DNI
--- NOTE | 2017-01-31 10:54 | PN ---
Progress Note - Progress Note Date of Service: 01/31/17 SOAP: Subjective: He appears comfortable and remains non-verbal; will open eyes to stimulation. His daughter said he was more awake and alert this morning and he "looked good" He is out of bed in a recliner chair Objective: Temp Pulse Resp BP Pulse Ox 99.0 F 58 20 109/64 99 01/31/17 08:20 01/31/17 08:20 01/31/17 08:20 01/31/17 08:20 01/31/17 08:20 Intake & Output 01/29/17 01/30/17 01/31/17 02/01/17 06:59 06:59 06:59 06:59 Intake Total 2304 Output Total 0 Balance 2304 Weight 180 lb Intake: IV Fluids 1946 NS (0.9%) 20 meq KCL 1946 IVPB 358 ABX - ZOSYN 158 NS (0.9%) 20 meq KCL 200 Oral 0 Output: Urine 0 Other: Estimated Void Large Medium # Bowel Movements 0 # Voids 1 1 PEX: He appears comfortable and is no distress and appears to be in no pain. Abd is soft and non-distended. Bowel sounds are present and they are normoactive. G-tube site is closed and there is no redness, induration or drainage There is no guarding, rigidity and he appears to have no pain when palpating the abdomen. No peritoneal signs Assessment: Inadvertent dislodgement of newly placed PEG tube No signs of peritonitis or sepsis--no fever, tachycardia. Normal WBC Plan: Continue present care-IV antibiotics and NPO. I do not think there is indication for laparoscopy and hopefully the gastrotomy site has sealed and will not require surgical closure. If he is doing OK tomorrow will consider starting on clear liquids I discussed all of the above with patient's daughter at the bedside and answered her questions. I explained the problems associated with removal of a fresh g-tube. For now will follow but if change in clinical condition he will require laparoscopy and I explained this to her.
[2017-01-31] MEDS: Aspirin SUPP* 300 MG PR SCH (11:41)
[2017-01-31 12:50] LABS: BUN/Creatinine Ratio 10.3 (8-20); Calcium 8.4 mg/dL (8.6-10.3); EGFR African American 106.7 (>60); Magnesium 1.7 mg/dL (1.9-2.7); Potassium 3.7 mmol/L (3.5-5.0)
[2017-02-01] MEDS: ZOSYN 3.375 GM IVPB SCH ×8 (00:06→18:05)
[2017-02-01] MEDS: D5W 1/2 NS KCl 20 Meq 1000 ML* 1,000 ML IV SCH ×2 (00:08→13:58)
[2017-02-01] MEDS: Insulin LISPRO* 1 UNITS UNIT SUBCUT SCH ×4 (00:25→18:05)
[2017-02-01] MEDS: Heparin VIAL(*) 5000 UNITS/ML VIAL (FIVE THOUSAND) SUBCUT SCH (06:28)
[2017-02-01 07:13] LABS: Hematocrit 42 % (42-52); Hemoglobin 13.9 g/dl (14.0-18.0); Mean Corpuscular HGB Conc 33 g/dl (31-36); Mean Corpuscular Hemoglobin 32 pg (27-31); Mean Corpuscular Volume 97 fL (80-94); Mean Platelet Volume 8 um3 (7.4-10.4); Red Blood Count 4.33 10^6/ul (4.0-5.4); Red Cell Distribution Width 13 % (10.5-15)
[2017-02-01 07:32] LABS: BUN/Creatinine Ratio 9.6 (8-20); Calcium 8.6 mg/dL (8.6-10.3); EGFR African American 112.7 (>60); EGFR Non-African American 87.6 (>60); Potassium 3.1 mmol/L (3.5-5.0)
--- NOTE | 2017-02-01 09:27 | PN ---
Progress Note - Progress Note Date of Service: 02/01/17 SOAP: Subjective: nonverbal,opens eyes to stimuli [] Objective:afeb,VSS;abd:+bs,soft,nondistended;gtube site closed,no erythema; nontender,no guarding Vital Signs Temp 98.1 F 02/01/17 07:24 Pulse 55 02/01/17 07:30 Resp 18 02/01/17 07:30 BP 106/63 02/01/17 07:24 Pulse Ox 99 02/01/17 07:24 Intake & Output 01/31/17 02/01/17 02/01/17 18:59 06:59 18:59 Intake Total 0 1262 Output Total 0 Balance 0 1262 Intake: IV Fluids 952 NS (0.9%) 20 meq KCL 952 IVPB 310 ABX - ZOSYN 310 Oral 0 0 Output: Urine 0 Other: Estimated Void Small Large # Bowel Movements 0 # Voids 1 2 [] Assessment:inadvertent dislocation of newly placed PEG tube [] Plan:continue IV abx;NPO until swallowing eval;consider clear liquids;possible placement of new PEG later this week;discussed with Dr Carver. []
[2017-02-01] MEDS: Nystatin CREAM* 15 GM TUBE TOPICAL SCH ×2 (09:53→19:25)
[2017-02-01] MEDS: Aspirin SUPP* 300 MG PR SCH (09:53)
--- NOTE | 2017-02-01 11:24 | PN ---
Subjective Date of Service: 02/01/17 Interval History: Patient not able to make his needs known. Objective Active Medications: Aspirin (Aspirin Supp*) 300 mg [place] DAILY [facility] Last Admin: 02/01/17 09:53 Dose: 300 mg Dextrose (D50w Syringe 50 Ml*) 12.5 gm IV PUSH .FOR FS < 60 - SS PRN PRN Reason: FS < 60 Enoxaparin Sodium (Lovenox(*)) 40 mg SUBCUT Q24H [facility] Piperacillin Sod/Tazobactam (Sod 3.375 gm/ Sodium Chloride) 100 mls @ 200 mls/ hr IVPB Q6H [facility] Last Admin: 02/01/17 06:24 Dose: 200 mls/hr Potassium Chloride/Dextrose (D5w 1/2 Ns Kcl 20 Meq 1000 Ml*) 1,000 mls @ 100 mls/hr IV PER RATE [facility] Insulin Human Lispro (Humalog*) 0 units SUBCUT Q6HR JUAN DANIEL PRN Reason: Protocol Last Admin: 02/01/17 06:28 Dose: 2 units Ipratropium [place] (Atrovent 0.5 Mg Neb.Gemma*) 0.5 mg INH Q6H PRN PRN Reason: SOB/WHEEZING Nystatin (Nystatin Cream*) 1 applic TOPICAL BID [facility] Last Admin: 02/01/17 09:53 Dose: 1 applic Vital Signs 01/31/17 01/31/17 01/31/17 11:58 12:27 15:25 Temperature 99.0 F 99.1 F 99.1 F Pulse Rate 61 52 62 Respiratory 16 16 20 Rate Blood Pressure 111/54 113/54 120/62 (mmHg) O2 Sat by Pulse 98 96 99 Oximetry 01/31/17 01/31/17 02/01/17 19:27 20:00 00:12 Temperature 99.8 F 98.1 F Pulse Rate 64 55 Respiratory 16 16 16 Rate Blood Pressure 127/67 117/51 (mmHg) O2 Sat by Pulse 97 100 Oximetry 02/01/17 02/01/17 02/01/17 03:23 07:24 07:30 Temperature 97.9 F 98.1 F Pulse Rate 56 49 55 Respiratory 18 16 18 Rate Blood Pressure 131/60 106/63 (mmHg) O2 Sat by Pulse 100 99 Oximetry Oxygen Devices in Use Now: None Appearance: Lethagic, mostly sleeping, head partly up in bed. Neutral affect. Looks comfortable. Eyes: No Scleral Icterus Respiratory: Symmetrical Chest Expansion and Respiratory Effort, Clear to Auscultation, Clear to Percussion Cardiovascular: NL Sounds; No Murmurs; No JVD, RRR, No Edema, - Extremities: No Edema, No Clubbing, Cyanosis, - Skin: No Rash or Ulcers, No Nodules or Sclerosis, - Neurological: - - Poo eye contact. Non-verbal. Daughter reports he can only say "yes" in his koi tongue. Doesn't follow commands. No tremor. Result Diagrams: 02/01/17 06:46 02/01/17 06:46 Additional Lab and Data: Lab Results 01/30/17 01/30/17 Range/Units 02:43 02:43 WBC 14.6 H (3.5-10.8) 10^3/ul RBC 4.84 (4.0-5.4) 10^6/ul Hgb 15.6 (14.0-18.0) g/dl Hct 45 (42-52) % MCV 93 (80-94) fL MCH 32 H (27-31) pg MCHC 35 (31-36) g/dl RDW 13 (10.5-15) % Plt Count 287 (150-450) 10^3/ul MPV 7 L (7.4-10.4) um3 Neut % (Auto) 76.7 (38-83) % Lymph % (Auto) 8.8 L (25-47) % Casey % (Auto) 13.3 H (1-9) % Eos % (Auto) 1.0 (0-6) % Baso % (Auto) 0.2 (0-2) % Absolute Neuts (auto) 11.2 H (1.5-7.7) 10^3/ul Absolute Lymphs (auto) 1.3 (1.0-4.8) 10^3/ul Absolute Monos (auto) 1.9 H (0-0.8) 10^3/ul Absolute Eos (auto) 0.1 (0-0.6) 10^3/ul Absolute Basos (auto) 0 (0-0.2) 10^3/ul Absolute Nucleated RBC 0.01 10^3/ul Nucleated RBC % 0 Sodium 136 (133-145) mmol/L Potassium 2.8 L (3.5-5.0) mmol/L Chloride 101 (101-111) mmol/L Carbon Dioxide 29 (22-32) mmol/L Anion Gap 6 (2-11) mmol/L BUN 10 (6-24) mg/dL Creatinine 0.71 (0.67-1.17) mg/dL Est GFR ( Amer) 135.0 (>60) Est GFR (Non-Af Amer) 104.9 (>60) BUN/Creatinine Ratio 14.1 (8-20) Glucose 180 H (70-100) mg/dL Calcium 9.3 (8.6-10.3) mg/dL Microbiology and Other Data: Microbiology 01/30/17 06:40 Nasal Screen MRSA (PCR)(LEONCIO) - Final Nasal Mrsa Negative Assess/Plan/Problems-Billing Mr Sarah is an 86 yo M who has a 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 G tube inserted 14/02, came out (likely by ptient pulling it) after 2 days. I told his daughter Mary I do not recommend re-inserting PEG tube and recommend Hospice care. On 02/02/17, KAYKAY Mac, [facility] Coordinator Roosevelt Guzman and I spoke with 5 family members and reviewed the patient's condition, prognosis, and management. (2) Type II diabetes mellitus Current Visit: Yes Status: Acute Comment: In view of comfort care status and very short prognosis will stop FS glucose checks and insulin tx. (3) COPD (chronic obstructive pulmonary disease) Current Visit: No Status: Chronic Code(s): J44.9 - CHRONIC OBSTRUCTIVE PULMONARY DISEASE, UNSPECIFIED SNOMED Code(s): 49808299 Comment: Asymptomatic. Continue prn ipratropium by neb.
--- NOTE | 2017-02-01 12:20 | PN ---
Progress Note - Progress Note Date of Service: 02/01/17 Note: Time spent on patient care, mainly in discussion with his daughter, case filler , SW, Hospice 50 minutes.
[2017-02-01] MEDS ORDERED: Enoxaparin(*) 40 MG/0.4 ML SYR SUBCUT SCH (14:00)
[2017-02-02] MEDS: D5W 1/2 NS KCl 20 Meq 1000 ML* 1,000 ML IV SCH (00:08)
[2017-02-02] MEDS: ZOSYN 3.375 GM IVPB SCH ×4 (00:09→06:18)
[2017-02-02] MEDS: Insulin LISPRO* 1 UNITS UNIT SUBCUT SCH ×2 (00:26→06:16)
[2017-02-02 07:47] VITALS: BP 91/46
--- NOTE | 2017-02-02 09:29 | TRS ---
CC: Dr. Nunez DISCHARGE SUMMARY: DATE OF ADMISSION: DATE OF TRANSFER: 02/01/17 HISTORY: This 86-year-old man was transferred from [facility]. He had been a resident there 8 months. On 01/15/17 he was found to have a stroke. 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 They declined to do intervention there. They told the family he had too much damage to his brain at that time for surgery. A day or two before discharge, I believe they put in a G- tube. He was returned to [facility], he was only there 2 days. The G-tube came out no one really observed this, the patient himself could not communicate at all. I do not think he could understand even with [place] translators. I think it is very likely he pulled out the tube or perhaps whether intentionally or accidently, it would be impossible to say or for some other error the tube was dislodged. The patient received intravenous antibiotics. I spoke to the daughter Mary who is the health care proxy, she understands that his prospects of recovery and significant neurologic recovery are extremely small. She stated herself that he had seen other people in similar situation, I think his [id number] and said he would not want to live in that kind of condition. She has decided for comfort care measures. She understands he will only live a week to 10 days as a rough range. He did have another swallow eval here and it was recommended by the speech pathologist that he be n.p.o. The patient will be transferred back to [facility] with comfort care orders. His only medication is morphine 20 mg per mL concentrate, 1 quarter mL or 5 mg sublingual every 30 minutes p.r.n. DISCHARGE DIAGNOSIS: Cerebrovascular accident. DISCHARGE MEDICATIONS: 1. Morphine oral concentrate 5 mg SL q 30 min PRN 2. Lorazepam 1 mg SL q 4 hr PRN 3. Nystatin cream bid [facility] [id number]/[facility] #: [id number] [facility]
[2017-02-02] MEDS: Nystatin CREAM* 15 GM TUBE TOPICAL SCH (09:44)
[2017-02-02] MEDS: Aspirin SUPP* 300 MG PR SCH (09:44)
[2017-02-02] MEDS ORDERED: LORazepam TAB(*) 1 MG SL PRN (11:02)
[2017-02-02] MEDS ORDERED: Morphine ORAL CONCENTRATE* 5 MG/0.25 ML ORAL.SYRIN SL PRN (11:02)
== END 2017-02-02 12:13 | DRG 394 ==
LOC: ED 23:08 → SSU 01-30 05:32
PROVIDERS: ADMIT Internal Medicine; ATTEND Internal Medicine
PROC: 0DP6XUZ Removal of Feeding Device from Stomach, External Approach (ICD-10-PCS; principal; 2017-01-30)
DX: Z43.1 Encounter for attention to gastrostomy (principal); I42.9 Cardiomyopathy, unspecified; I50.9 Heart failure, unspecified; I69.351 Hemiplegia and hemiparesis following cerebral infarction affecting right dominant side; I10 Essential (primary) hypertension; E11.9 Type 2 diabetes mellitus without complications; J44.9 Chronic obstructive pulmonary disease, unspecified; I48.91 Unspecified atrial fibrillation; Y83.3 Surgical operation with formation of external stoma as the cause of abnormal reaction of the patient, or of later complication, without mention of misadventure at the time of the procedure; E78.5 Hyperlipidemia, unspecified; Y92.239 Unspecified place in hospital as the place of occurrence of the external cause; Z88.5 Allergy status to narcotic agent; Z88.1 Allergy status to other antibiotic agents; I25.2 Old myocardial infarction; Z95.5 Presence of coronary angioplasty implant and graft; Z82.49 Family history of ischemic heart disease and other diseases of the circulatory system; Z83.3 Family history of diabetes mellitus; Z87.891 Personal history of nicotine dependence
CPT/HCPCS: 36415; 36598; 49465; 80048; 83735; 85025; 87641; A9270-GY; J1644; J1650; J2543; J3480